=== PATIENT | female | born 1990 | race Caucasian/White ===

== ENCOUNTER 2024-11-07 22:24 | Day surgery (SDC) | payer BC ==
[2024-11-07] MEDS ORDERED: Ketorolac 30 MG/ML SDV ONE (23:40)
[2024-11-07] MEDS ORDERED: Dexamethasone 4 MG/ML 5 ML MDV ONE (23:40)
[2024-11-07] MEDS ORDERED: Sugammadex Sodium 200 MG/2 ML VIAL IV ONE (23:40)
[2024-11-07] MEDS ORDERED: Ondansetron 4 MG/2 ML SDV ONE (23:40)
[2024-11-07] MEDS ORDERED: Lidocaine 2% 5 ML SDV ONE (23:40)
[2024-11-07] MEDS ORDERED: Propofol 200 MG/20 ML SDV ONE (23:41)
[2024-11-07] MEDS ORDERED: fentaNYL 100 MCG/2 ML SDV ONE ×2 (23:41)
[2024-11-07 23:42] LABS: BASOPHILS PERCENT AUTO 0.2 % (0.0-1.0); EOSINOPHILS ABSOLUTE AUTO 0.1 K/mm3 (0.0-0.4); EOSINOPHILS PERCENT AUTO 0.8 % (0.0-6.0); HEMATOCRIT 37.4 % (37.0-47.0); HEMOGLOBIN 12.1 gm/dl (12.0-16.0); IMMATURE GRAN ABSOLUTE AUTO 0.05 K/mm3 (0.00-0.05); IMMATURE GRAN PERCENT AUTO 0.4 % (0.0-0.4); LYMPHOCYTES ABSOLUTE AUTO 5.9 K/mm3 (1.0-4.8); LYMPHOCYTES PERCENT AUTO 45.4 % (24.0-44.0); MEAN CORPUSCULAR HEMOGLOBIN 28.8 pg (28.0-32.0); MEAN CORPUSCULAR HGB CONC 32.4 g/dl (32.0-36.0); MEAN PLATELET VOLUME 9.4 fl (9.4-12.3); MONOCYTES PERCENT AUTO 7.8 % (0.0-8.0); NEUTROPHILS ABSOLUTE AUTO 5.9 K/mm3 (1.8-7.7); NEUTROPHILS PERCENT AUTO 45.4 % (41.0-71.0); PLATELET COUNT,PLT 326 K/mm3 (150-400); WHITE BLOOD CELL COUNT,WBC 13.03 K/mm3 (3.9-11.3)
[2024-11-07 23:55] LABS: A/G RATIO 1.2 (1-2); ALBUMIN 3.9 g/dl (3.4-5.0); ANION GAP 17.2 (5-15); BILIRUBIN TOTAL 0.3 mg/dL (0.2-1.0); CALCIUM 9.2 mg/dL (8.5-10.1); EST CRCL DRUG DOSING (CG) 68.76 mL/min; POTASSIUM,K 3.2 mEq/L (3.5-5.1); PROTEIN TOTAL,TP 7.2 g/dl (6.4-8.2)
[2024-11-07 23:58] LABS: SLIDE REVIEW ABNORMAL SMEAR
[2024-11-08 00:24] LABS: APPEARANCE,URINE CLEAR (Clear); BILIRUBIN,URINE NEGATIVE (Negative); COLOR,URINE YELLOW (Yellow); GLUCOSE,URINE NEGATIVE (Negative); KETONES,URINE NEGATIVE (Negative); LEUKOCYTE ESTERASE,URINE NEGATIVE (Negative); NITRITE,URINE NEGATIVE (Negative); OCCULT BLOOD,URINE 1+ (Negative); PROTEIN,URINE NEGATIVE (Negative); UROBILINOGEN,URINE 0.2 (0.2-1.0)
[2024-11-08] MEDS: Sodium Chloride 0.9% 1,000 ML IV ONE (00:41)
[2024-11-08] MEDS ORDERED: EPINEPHrine 1 MG/ML SDV ONE (01:08)
[2024-11-08] MEDS ORDERED: Bupivacaine 0.5% 30 ML SDV ONE (01:08)
[2024-11-08] MEDS ORDERED: Bupivacaine 0.25% 10 ML SDV ONE (01:08)
[2024-11-08] MEDS ORDERED: Lactated Ringers 1,000 ML IV ONE ×2 (01:18→02:30)
[2024-11-08 01:28] LABS: RBC,URINE 0-5 /hpf (0-5); WBC,URINE 0-5 /hpf (0-5)
[2024-11-08 01:29] LABS: AMORPHOUS SEDIMENT,URINE MODERATE /hpf (NOT SEEN); BACTERIA,URINE FEW /hpf (FEW); MUCUS,URINE FEW /hpf (FEW)
[2024-11-08] MEDS ORDERED: Rocuronium 50 MG/5 ML Vial ONE (01:30)
[2024-11-08] MEDS: Lidocaine 1% 20 ML MDV ONE (01:56)
[2024-11-08] MEDS ORDERED: Ondansetron 4 MG/2 ML SDV ONE (02:36)
[2024-11-08] MEDS ORDERED: dexmedeTOMIDine HCl 200 MCG/2 ML SDV ONE (02:39)
[2024-11-08] MEDS ORDERED: Ondansetron 4 MG/2 ML SDV IVPUSH PRN (02:50)
[2024-11-08] MEDS ORDERED: Acetaminophen/oxyCODONE 325-5 MG Tab PO PRN ×2 (02:50)
[2024-11-08] MEDS: Ketorolac 15 MG/ML SDV IVPUSH SCH (08:08)
[2024-11-08 10:06] LABS: HEMATOCRIT 33.3 % (37.0-47.0); MEAN CORPUSCULAR HEMOGLOBIN 29.1 pg (28.0-32.0); MEAN CORPUSCULAR VOLUME 88.1 fl (83.0-99.0); MEAN PLATELET VOLUME 9.4 fl (9.4-12.3); PLATELET COUNT,PLT 210 K/mm3 (150-400); RED BLOOD CELL COUNT 3.78 M/mm3 (4.10-5.30); WHITE BLOOD CELL COUNT,WBC 10.74 K/mm3 (3.9-11.3)
== END 2024-11-08 12:00 | disposition home or self-care (01) ==
LOC: JD.ED 22:24 → JD.SDS 11-08 01:17 → JD.MS 11-08 03:18 → JD.SDS 11-08 12:00
PROVIDERS: ATTEND Obstetrics & Gynecology
DX: O00.90 Unspecified ectopic pregnancy without intrauterine pregnancy (principal); N83.6 Hematosalpinx; Z79.899 Other long term (current) drug therapy
CPT/HCPCS: 36415; 59151; 76830; 80053; 81001; 83690; 84702; 85025; 85027; 86850; 86900; 86901; 86922; 93005; 96360; 99285; J0171; J0665; J1100; J1885; J2003; J2405; J2704; J3010; J7030; J7120; 00840; 64488; 93010; 99140; 99284; J3490